=== PATIENT | male | born 1990 | race African-American/Black ===

== ENCOUNTER 2018-04-27 05:36 | Emergency (ER) | payer SELFPAY ==
[~2018-04-27] VITALS: Ht 165.1 cm; Wt 91.6 kg
[2018-04-27 06:32] LABS: CLARITY URINE CLEAR (CLEAR); COLOR URINE YELLOW (YELLOW); KETONES URINE NEGATIVE (NEGATIVE); LEUKOCYTE ESTERASE URINE NEGATIVE (NEGATIVE); NITRITE URINE NEGATIVE (NEGATIVE); OCCULT BLOOD URINE NEGATIVE (NEGATIVE); PROTEIN URINE NEGATIVE (NEGATIVE); UROBILINOGEN URINE 0.2 E.U./dL (0.2-1.0)
[2018-04-27] MEDS ORDERED: DICYCLOMINE 10 MG/5 ML ORAL SYR PO STA (06:46)
[2018-04-27 07:18] LABS: BASOPHILS % 0.5 % (0.0-2.0); EOSINOPHILS % 2.7 % (0.0-5.0); HEMATOCRIT. 43.2 % (42.0-52.0); HEMOGLOBIN. 14.2 g/dL (14.0-18.0); LYMPHOCYTES % 33.9 % (20.0-50.0); MEAN PLATELET VOLUME 8.7 fl (7.4-10.4); MONOCYTES % 8.3 % (2.0-8.0); NEUTROPHILS % 54.6 % (40.0-76.0); PLATELET 264 x1000/uL (130-400); RED CELL DISTRIBUTION WIDTH 13.2 % (11.6-14.6)
[2018-04-27 07:23] LABS: CHLORIDE 103 mEq/L (98-107)
[2018-04-27 09:02] VITALS: BP 132/69
== END 2018-04-27 09:02 | disposition home or self-care (01) ==
LOC: ER 05:36
DX: K59.00 Constipation, unspecified (principal)
CPT/HCPCS: 36415; 74018; 99284